=== PATIENT | male | born 1950 | race Two or more races ===

== ENCOUNTER → 2016-10-31 | Outpatient (CLI) | payer OTHER ==
[~2016-10-31] VITALS: Ht 162.6 cm; Wt 83.0 kg
[2016-10-31 16:40] LABS: Basophils # (auto) 0 uL; Basophils % (auto) 0.5 % (0.0-2.0); CONDITION Y; Eosinophils # (auto) 0.1 uL; Eosinophils % (auto) 1.3 % (0.0-7.0); Hemoglobin 15.8 g/dL (13.5-17.5); Lymphocytes # (auto) 2.1 uL; Mean Corpuscular Hemoglobin 31.7 pg (28.0-32.0); Mean Corpuscular Hgb Conc. 33.6 g/dL (32.0-36.0); Mean Corpuscular Volume 94.2 fL (80.0-100.0); Mean Platelet Volume 8.7 fL (7.4-10.4); Monocytes # (auto) 0.4 uL; Monocytes % (auto) 6.4 % (0.0-12.0); Neutrophils # (auto) 3.8 uL; Neutrophils % (auto) 59.8 % (37.0-80.0); Platelet Count (auto) 388 10^3/uL (140-450); Red Cell Distribution Width 13.9 % (11.6-16.0); White Blood Cell 6.4 10^3/uL (4.4-10.8)
[2016-10-31 16:57] LABS: Albumin 3.7 g/dL (3.4-5.0); Anion Gap 11 (5-15); Blood Urea Nitrogen 11 mg/dL (7-18); Calcium 8.3 mg/dL (8.5-10.1); Carbon Dioxide 22 mmol/L (21-32); Chloride 110 mmol/L (98-107); Glucose 89 mg/dL (74-106); Sodium 143 mmol/L (136-145)
[2016-10-31 16:58] LABS: Aspartate Aminotransferase 17 U/L (15-37); BUN/Creatinine Ratio 12.2; GFR African American 109 mL/min; GFR Non-African American 90 mL/min
[2016-10-31 16:59] LABS: Urine Bilirubin Negative (Negative); Urine Blood Negative /uL (Negative); Urine Color Yellow (Yellow); Urine Glucose Normal (Normal); Urine Ketone Negative (Negative); Urine Nitrite Negative (Negative); Urine Urobilinogen Normal (Negative); Urine pH 7.5 (5.0-8.0)
[2016-10-31 17:01] LABS: Alkaline Phosphatase 103 U/L (45-117); Bilirubin, Total 0.6 mg/dL (0.2-1.0); Total Protein 7.8 g/dL (6.4-8.2)
[2016-10-31 17:25] LABS: Bilirubin, Direct < 0.1 mg/dL (0-0.2); Cholesterol 198 mg/dL (< 200); HDL Cholesterol 37 mg/dL (40-59); LDL Cholesterol 129 mg/dL (< 100); Triglycerides 228 mg/dL (< 150)
== END | disposition home or self-care (01) ==
LOC: Rad HDHVI 09:14
PROVIDERS: ATTEND Internal Medicine Cardiovascular Disease
DX: I11.0 Hypertensive heart disease with heart failure (principal); I50.9 Heart failure, unspecified; I25.2 Old myocardial infarction; E11.9 Type 2 diabetes mellitus without complications; E78.00 Pure hypercholesterolemia, unspecified; E03.9 Hypothyroidism, unspecified; K74.1 Hepatic sclerosis; N39.0 Urinary tract infection, site not specified; D64.9 Anemia, unspecified; E55.9 Vitamin D deficiency, unspecified; R53.81 Other malaise; R97.20 Elevated prostate specific antigen [PSA]; R94.31 Abnormal electrocardiogram [ECG] [EKG]
CPT/HCPCS: 36415; 78452; 80048; 80061; 80076; 81003; 82306; 83036; 84403; 84443; 85025; 93017; 96374; A9500; 84153

== ENCOUNTER → 2016-11-01 | Outpatient (CLI) | payer OTHER | END | disposition home or self-care (01) | LOC: Rad HDHVI 15:49 | PROVIDERS: ATTEND Internal Medicine Cardiovascular Disease | DX: I73.9 Peripheral vascular disease, unspecified (principal) | CPT/HCPCS: 93926 ==

== ENCOUNTER 2017-06-07 09:20 | Inpatient (IN) | payer OTHER ==
[~2017-06-07] VITALS: Ht 162.6 cm; Wt 80.6 kg
[2017-06-07 10:14] LABS: Basophils # (auto) 0 uL; Basophils % (auto) 0.3 % (0.0-2.0); Eosinophils # (auto) 0 uL; Hematocrit 50.6 % (41.0-53.0); Hemoglobin 16.9 g/dL (13.5-17.5); Lymphocytes # (auto) 1.3 uL; Lymphocytes % (auto) 13.5 % (10.0-50.0); Mean Corpuscular Hgb Conc. 33.3 g/dL (32.0-36.0); Mean Corpuscular Volume 96.2 fL (80.0-100.0); Monocytes # (auto) 0.3 uL; Monocytes % (auto) 2.9 % (0.0-12.0); Neutrophils % (auto) 83.3 % (37.0-80.0); Nucleated Red Blood Cells % 0.1 %; Platelet Count (auto) 374 10^3/uL (140-450); Red Blood Cells 5.26 10^6/uL (4.5-5.90); Red Cell Distribution Width 14.6 % (11.8-14.3); White Blood Cell 9.6 10^3/uL (4.4-10.8)
[2017-06-07 10:21] LABS: Alanine Aminotransferase 41 U/L (16-61); Albumin 4.1 g/dL (3.4-5.0); Anion Gap 6 (5-15); Aspartate Aminotransferase 21 U/L (15-37); BUN/Creatinine Ratio 13.8; Blood Urea Nitrogen 15 mg/dL (7-18); Calcium 8.7 mg/dL (8.5-10.1); Carbon Dioxide 29 mmol/L (21-32); Chloride 102 mmol/L (98-107); GFR African American 87 mL/min; GFR Non-African American 72 mL/min; Glucose 155 mg/dL (74-106); Potassium 4.3 mmol/L (3.5-5.1); Sodium 137 mmol/L (136-145)
[2017-06-07 10:26] LABS: Alkaline Phosphatase 107 U/L (45-117); Bilirubin, Total 0.8 mg/dL (0.2-1.0); Total Protein 8.5 g/dL (6.4-8.2)
[2017-06-07] MEDS ORDERED: SODIUM CHLORIDE 0.9% 1,000 ML IVB ONE (14:09)
[2017-06-07] MEDS ORDERED: ONDANSETRON HCL 4 MG/2 ML VIAL IV ONE (14:15)
[2017-06-07] MEDS ORDERED: LABETALOL HCL 5 MG/ML ML 20ML VIAL IV PRN (15:45)
[2017-06-07] MEDS ORDERED: PROMETHAZINE HCL 25 MG/ML 1ML IV PRN (15:45)
[2017-06-07] MEDS ORDERED: IOHEXOL 350 MG/ML 100ML IJ ONE (15:45)
[2017-06-07] MEDS ORDERED: NITROGLYCERIN 0.4 MG SL TAB SL PRN (15:45)
[2017-06-07] MEDS ORDERED: MORPHINE SULFATE 4 MG/ML SYR/VIAL IV PRN ×2 (15:45)
[2017-06-07] MEDS ORDERED: LACTULOSE 20Gm/30ML SOLN PO PRN (15:45)
[2017-06-07] MEDS ORDERED: DEXTROSE (50%) 50ML SYRG IV PRN (15:45)
[2017-06-07] MEDS ORDERED: ACETAMINOPHEN 500 MG TAB PO PRN (15:45)
[2017-06-07] MEDS ORDERED: HYDROcodone-ACET 5/325MG TAB PO PRN (15:45)
[2017-06-07] MEDS: SODIUM CHLORIDE 0.9% 1,000 ML IV SCH (17:50)
[2017-06-07] MEDS: ACCU-CHEK COMFORT CURVE STRIP VI SCH (18:18)
[2017-06-07 18:46] LABS: Urine Bacteria NONE SEEN /hpf (None Seen); Urine Blood Negative /uL (Negative); Urine Mucus FEW (None Seen); Urine WBC 1 /hpf (0 - 3)
[2017-06-07 18:54] LABS: Urine Specific Gravity > 1.050 (1.001-1.035)
[2017-06-07 18:58] LABS: Folate (Folic Acid) 18.15 ng/mL (5.38-24)
[2017-06-07 18:59] LABS: Alcohol, Urine < 3.0 mg/dL (0-5); Amphetamine Screen, Urine NEGATIVE (NEGATIVE); Barbiturate Scree,Urine NEGATIVE (NEGATIVE); Benzodiazephine Screen, Urine NEGATIVE (NEGATIVE); Cannabinoid Screen, Urine NEGATIVE (NEGATIVE); Cocaine Screen, Urine NEGATIVE (NEGATIVE); Opiate Scree,Urine NEGATIVE (NEGATIVE); Phencyclidine Screen, Urine NEGATIVE (NEGATIVE)
[2017-06-07] MEDS: ATORVASTATIN 20 MG TAB PO SCH (22:00)
[2017-06-08] MEDS ORDERED: ASPI81CH4 PO (00:37)
[2017-06-08] MEDS ORDERED: ENAL2.5T PO (00:37)
[2017-06-08] MEDS: SODIUM CHLORIDE 0.9% 1,000 ML IV SCH ×2 (04:10→17:44)
[2017-06-08 05:02] VITALS: BP 137/74
[2017-06-08] MEDS: ACCU-CHEK COMFORT CURVE STRIP VI SCH ×4 (05:34→17:53)
[2017-06-08 08:00] VITALS: BP 134/75
[2017-06-08] MEDS ORDERED: ENOXAPARIN SOD 40 MG/0.4 ML SYRINGE SC SCH (10:00)
[2017-06-08] MEDS ORDERED: PANTOPRAZOLE 40 MG TAB PO SCH (10:00)
[2017-06-08] MEDS ORDERED: ASPirin 81 mg TAB PO SCH (10:00)
[2017-06-08 12:00] VITALS: BP 140/74
[2017-06-08 17:00] VITALS: BP 134/82
[2017-06-08 21:57] VITALS: BP 140/74
[2017-06-08] MEDS: ATORVASTATIN 20 MG TAB PO SCH (22:26)
[2017-06-09 00:06] VITALS: BP 140/74
[2017-06-09] MEDS: SODIUM CHLORIDE 0.9% 1,000 ML IV SCH (05:10)
[2017-06-09 05:30] VITALS: BP 139/76
[2017-06-09] MEDS: ACCU-CHEK COMFORT CURVE STRIP VI SCH ×2 (05:44)
[2017-06-09 09:00] VITALS: BP 134/84
== END 2017-06-09 10:44 | disposition home or self-care (01) | DRG 149 ==
LOC: ER 09:20 → TELE 09:21 → TELE-EAST 19:43 → EAST 06-09 05:49
PROVIDERS: ADMIT Internal Medicine; ATTEND Family Medicine
DX: R42 Dizziness and giddiness (principal); E78.5 Hyperlipidemia, unspecified; E86.1 Hypovolemia; I10 Essential (primary) hypertension; I25.10 Atherosclerotic heart disease of native coronary artery without angina pectoris; K59.00 Constipation, unspecified; K57.90 Diverticulosis of intestine, part unspecified, without perforation or abscess without bleeding; I25.2 Old myocardial infarction; Z82.49 Family history of ischemic heart disease and other diseases of the circulatory system
CPT/HCPCS: 36415; 70450; 71045; 71275; 80053; 80307; 81001; 82550; 82607; 82746; 82962; 83036; 83880; 84443; 84484; 85025; 85379; 85652; 93005; 93306; 93886; 94761; 96361; 96374; J2405

== ENCOUNTER → 2023-02-08 | Outpatient (CLI) | payer OTHER ==
[~2023-02-08] MED LIST: ASPI81CH74 PO; ENAL1TAB42 PO
== END | disposition home or self-care (01) ==
LOC: XYW 10:19
PROVIDERS: ATTEND Student in an Organized Health Care Education/Training Program
DX: I73.9 Peripheral vascular disease, unspecified (principal)
CPT/HCPCS: 93925

== ENCOUNTER → 2023-02-08 | Outpatient (CLI) | payer OTHER ==
[2023-02-08 11:48] LABS: Basophils # (auto) 0.1 10 ^3/uL (0-0.2); Basophils % (auto) 0.7 % (0.0-2.0); Eosinophils # (auto) 0.1 10 ^3/uL (0-0.8); Eosinophils % (auto) 1.4 % (0.0-7.0); Hematocrit 43.1 % (41.0-53.0); Hemoglobin 14.8 g/dL (13.5-17.5); Lymphocytes # (auto) 2.7 10 ^3/uL (0.4-5.4); Lymphocytes % (auto) 32.6 % (10.0-50.0); Mean Corpuscular Hemoglobin 31.2 pg (28.0-32.0); Mean Corpuscular Hgb Conc. 34.4 g/dL (32.0-36.0); Mean Corpuscular Volume 90.9 fL (80.0-100.0); Monocytes # (auto) 0.5 10 ^3/uL (0-1.3); Monocytes % (auto) 5.8 % (0.0-12.0); Neutrophils # (auto) 4.9 10 ^3/uL (1.6-8.6); Neutrophils % (auto) 59.5 % (37.0-80.0); Nucleated Red Blood Cells % 0.1 %; Red Blood Cells 4.74 10^6/uL (4.5-5.90); Red Cell Distribution Width 13.5 % (11.8-14.3); White Blood Cell 8.3 10^3/uL (4.4-10.8)
[2023-02-08 11:53] LABS: Urine Bacteria NONE SEEN /hpf (None Seen); Urine Blood Negative /uL (Negative); Urine Clarity Clear (Clear); Urine Color Colorless (Yellow); Urine Hyaline Cast FEW /lpf (0 - 2); Urine Mucus FEW (None Seen); Urine Protein, UAD Negative (Negative); Urine Specific Gravity 1.013 (1.001-1.035); Urine Urobilinogen Normal (Negative); Urine WBC <1 /hpf (0 - 3); Urine pH 6.5 (5.0-8.0)
[2023-02-08 12:37] LABS: Alanine Aminotransferase 44 U/L (7-40); Albumin 4.7 g/dL (3.2-4.8); Alkaline Phosphatase 90 U/L (46-116); Anion Gap 7 (5-15); Aspartate Aminotransferase 39 U/L (13-40); BUN/Creatinine Ratio 13.2 (10.0-20.0); Blood Urea Nitrogen 12 mg/dL (9-23); Calcium 9.6 mg/dL (8.5-10.1); Carbon Dioxide 30 mmol/L (20-30); Chloride 103 mmol/L (98-107); Cholesterol 131 mg/dL (< 200); Glucose 103 mg/dL (74-106); HDL Cholesterol 39 mg/dL (40-59); LDL Cholesterol 65 mg/dL (< 100); Potassium 3.2 mmol/L (3.5-5.1); Sodium 140 mmol/L (136-145); Total Protein 8.1 g/dL (5.7-8.2); Triglycerides 187 mg/dL (< 150)
== END | disposition home or self-care (01) ==
LOC: LAB 11:23
DX: I10 Essential (primary) hypertension (principal); E78.5 Hyperlipidemia, unspecified; E78.1 Pure hyperglyceridemia
CPT/HCPCS: 36415; 80053; 80061; 81001; 82306; 83036; 85025

== ENCOUNTER → 2023-06-29 | Outpatient (CLI) | payer OTHER ==
[~2023-06-29] MED LIST changes: +AMLO1TAB22 PO; +CLOP75TA28 PO; +ENAL10TA40 PO; -ENAL1TAB42 PO; +SIMV20TA20 PO
== END | disposition home or self-care (01) ==
LOC: LAB 16:10
PROVIDERS: ATTEND Student in an Organized Health Care Education/Training Program
DX: Z12.11 Encounter for screening for malignant neoplasm of colon (principal)
CPT/HCPCS: 82270

== ENCOUNTER → 2023-08-01 | Outpatient (CLI) | payer OTHER ==
[2023-08-01 08:11] LABS: Urine Bacteria None Seen /hpf (None Seen)
[2023-08-01 08:18] LABS: Basophils # (auto) 0 10 ^3/uL (0-0.2); Basophils % (auto) 0.5 % (0.0-2.0); Eosinophils # (auto) 0.2 10 ^3/uL (0-0.8); Eosinophils % (auto) 2.5 % (0.0-7.0); Hematocrit 42.4 % (41.0-53.0); Hemoglobin 14.5 g/dL (13.5-17.5); Lymphocytes # (auto) 3.4 10 ^3/uL (0.4-5.4); Lymphocytes % (auto) 41.5 % (10.0-50.0); Mean Corpuscular Hgb Conc. 34.2 g/dL (32.0-36.0); Mean Corpuscular Volume 90.8 fL (80.0-100.0); Monocytes # (auto) 0.6 10 ^3/uL (0-1.3); Monocytes % (auto) 7.2 % (0.0-12.0); Neutrophils % (auto) 48.3 % (37.0-80.0); Nucleated Red Blood Cells % 0.1 %; Red Blood Cells 4.66 10^6/uL (4.5-5.90); Red Cell Distribution Width 13.8 % (11.8-14.3); White Blood Cell 8.2 10^3/uL (4.4-10.8)
[2023-08-01 08:46] LABS: Urine Blood Negative /uL (Negative); Urine Clarity Clear (Clear); Urine Color Yellow (Yellow); Urine Hyaline Cast FEW /lpf (0 - 2); Urine Mucus FEW (None Seen); Urine Protein, UAD TRACE (Negative); Urine Specific Gravity 1.024 (1.001-1.035); Urine Urobilinogen Normal (Negative); Urine WBC 1 /hpf (0 - 3)
[2023-08-01 09:12] LABS: Alanine Aminotransferase 29 U/L (7-40); Alkaline Phosphatase 94 U/L (46-116); Anion Gap 9 (5-15); BUN/Creatinine Ratio 12.1 (10.0-20.0); Blood Urea Nitrogen 11 mg/dL (9-23); Calcium 9.6 mg/dL (8.5-10.1); Carbon Dioxide 28 mmol/L (20-30); Chloride 103 mmol/L (98-107); Glucose 117 mg/dL (74-106); Potassium 3.2 mmol/L (3.5-5.1); Sodium 140 mmol/L (136-145); Triglycerides 151 mg/dL (< 150)
[2023-08-01 09:13] LABS: LDL Cholesterol 73 mg/dL (< 100)
[2023-08-01 09:14] LABS: Albumin 4.4 g/dL (3.2-4.8); Aspartate Aminotransferase 24 U/L (13-40); Bilirubin, Total 0.8 mg/dL (0.2-1.0); Cholesterol 136 mg/dL (< 200); HDL Cholesterol 42 mg/dL (40-59); Total Protein 7.4 g/dL (5.7-8.2)
[2023-08-01 09:40] LABS: Erythrocyte Sedimentation Rate 9 mm/hr (0-20)
== END | disposition home or self-care (01) ==
LOC: LAB 07:56
DX: I10 Essential (primary) hypertension (principal); E78.5 Hyperlipidemia, unspecified; E55.9 Vitamin D deficiency, unspecified; R53.1 Weakness; Z79.899 Other long term (current) drug therapy
CPT/HCPCS: 36415; 80053; 80061; 81001; 83036; 84443; 85025; 85652

== ENCOUNTER 2023-12-24 09:06 | Emergency (ER) | payer OTHER ==
[~2023-12-24] VITALS: Ht 167.6 cm; Wt 81.2 kg
[2023-12-24] MEDS ORDERED: AMIODARONE 450mg/250ml AE 250 ML IV SCH (09:45)
[2023-12-24] MEDS ORDERED: AMIODARONE BOLUS KIT 100 ML IV ONE (09:45)
[2023-12-24 09:50] VITALS: TEMP 98
[2023-12-24] MEDS: dilTIAZem 25 MG/5 ML VIAL IV ONE (10:00)
[2023-12-24 10:15] LABS: Alanine Aminotransferase 29 U/L (7-40); Albumin 4.5 g/dL (3.2-4.8); Alkaline Phosphatase 98 U/L (46-116); Anion Gap 15 (5-15); Aspartate Aminotransferase 21 U/L (13-40); BUN/Creatinine Ratio 27.9 (10.0-20.0); Blood Urea Nitrogen 29 mg/dL (9-23); Carbon Dioxide 22 mmol/L (20-30); Chloride 105 mmol/L (98-107); Glucose 227 mg/dL (74-106); Potassium 3.2 mmol/L (3.5-5.1); Sodium 142 mmol/L (136-145)
[2023-12-24 10:16] LABS: Total Protein 7.2 g/dL (5.7-8.2)
[2023-12-24 10:17] LABS: Basophils # (auto) 0 10 ^3/uL (0-0.2); Basophils % (auto) 0.4 % (0.0-2.0); Eosinophils # (auto) 0.2 10 ^3/uL (0-0.8); Eosinophils % (auto) 1.8 % (0.0-7.0); Hematocrit 42.7 % (41.0-53.0); Hemoglobin 15.1 g/dL (13.5-17.5); Lymphocytes # (auto) 2.6 10 ^3/uL (0.4-5.4); Lymphocytes % (auto) 32.4 % (10.0-50.0); Mean Corpuscular Hemoglobin 31.8 pg (28.0-32.0); Mean Corpuscular Hgb Conc. 35.3 g/dL (32.0-36.0); Monocytes # (auto) 0.5 10 ^3/uL (0-1.3); Monocytes % (auto) 6.5 % (0.0-12.0); Neutrophils # (auto) 4.8 10 ^3/uL (1.6-8.6); Neutrophils % (auto) 58.9 % (37.0-80.0); Nucleated Red Blood Cells % 0.1 %; Platelet Count (auto) 351 10^3/uL (140-450); Red Blood Cells 4.75 10^6/uL (4.5-5.90); Red Cell Distribution Width 14.1 % (11.8-14.3); White Blood Cell 8.1 10^3/uL (4.4-10.8)
[2023-12-24] MEDS ORDERED: METO25TA5 PO (12:19)
[2023-12-24 12:25] VITALS: BP 133/78; PULSE 92; RESP 18; O2SAT 94
[2023-12-24] MEDS: POTASSIUM EFFERVESENT TAB 25 MEQ PO ONE (12:32)
== END 2023-12-24 12:31 | disposition home or self-care (01) ==
LOC: ER 09:06
DX: I48.91 Unspecified atrial fibrillation (principal); I10 Essential (primary) hypertension; I25.2 Old myocardial infarction; I25.10 Atherosclerotic heart disease of native coronary artery without angina pectoris; E78.5 Hyperlipidemia, unspecified; Z79.899 Other long term (current) drug therapy
CPT/HCPCS: 36415; 80053; 84484; 85025; 93005; 96374

== ENCOUNTER → 2024-02-27 | Outpatient (CLI) | payer OTHER ==
[~2024-02-27] MED LIST changes: +METO25TA5 PO
[2024-02-27 12:56] LABS: Urine Bacteria None Seen /hpf (None Seen)
[2024-02-27 13:04] LABS: Basophils # (auto) 0 10 ^3/uL (0-0.2); Basophils % (auto) 0.2 % (0.0-2.0); Eosinophils # (auto) 0.1 10 ^3/uL (0-0.8); Eosinophils % (auto) 1.9 % (0.0-7.0); Hematocrit 47.2 % (41.0-53.0); Hemoglobin 16.2 g/dL (13.5-17.5); Lymphocytes % (auto) 39.3 % (10.0-50.0); Mean Corpuscular Hemoglobin 31.5 pg (28.0-32.0); Mean Corpuscular Hgb Conc. 34.3 g/dL (32.0-36.0); Mean Corpuscular Volume 91.9 fL (80.0-100.0); Monocytes # (auto) 0.5 10 ^3/uL (0-1.3); Monocytes % (auto) 6.9 % (0.0-12.0); Neutrophils # (auto) 3.9 10 ^3/uL (1.6-8.6); Neutrophils % (auto) 51.7 % (37.0-80.0); Nucleated Red Blood Cells % 0.1 %; Platelet Count (auto) 337 10^3/uL (140-450); Red Blood Cells 5.14 10^6/uL (4.5-5.90); Red Cell Distribution Width 13.8 % (11.8-14.3); White Blood Cell 7.5 10^3/uL (4.4-10.8)
[2024-02-27 13:37] LABS: Urine Blood Negative /uL (Negative); Urine Clarity Clear (Clear); Urine Color Yellow (Yellow); Urine Hyaline Cast FEW /lpf (0 - 2); Urine Mucus FEW (None Seen); Urine Protein, UAD 1+ (Negative); Urine Urobilinogen 2 mg/dL (Negative); Urine WBC 1 /hpf (0 - 3)
[2024-02-27 13:58] LABS: Alanine Aminotransferase 28 U/L (7-40); Albumin 4.9 g/dL (3.2-4.8); Alkaline Phosphatase 96 U/L (46-116); Calcium 10.5 mg/dL (8.7-10.4); Chloride 104 mmol/L (98-107); Triglycerides 191 mg/dL (< 150)
[2024-02-27 13:59] LABS: Anion Gap 9 (5-15); Aspartate Aminotransferase 22 U/L (13-40); BUN/Creatinine Ratio 11.1 (10.0-20.0); Bilirubin, Total 0.9 mg/dL (0.2-1.0); Blood Urea Nitrogen 11 mg/dL (9-23); Carbon Dioxide 29 mmol/L (20-31); Cholesterol 115 mg/dL (< 200); Glucose 111 mg/dL (74-106); HDL Cholesterol 40 mg/dL (40-59); LDL Cholesterol 49 mg/dL (< 100); Potassium 4.2 mmol/L (3.5-5.1); Sodium 142 mmol/L (136-145); Total Protein 8.2 g/dL (5.7-8.2)
== END | disposition home or self-care (01) ==
LOC: LAB 12:41
DX: E11.9 Type 2 diabetes mellitus without complications (principal); E78.5 Hyperlipidemia, unspecified; E55.9 Vitamin D deficiency, unspecified
CPT/HCPCS: 36415; 80053; 80061; 81001; 82306; 83036; 84443; 85025

== ENCOUNTER → 2024-07-15 | Outpatient (CLI) | payer OTHER ==
[2024-07-15 10:36] LABS: Urine Bacteria None Seen /hpf (None Seen)
[2024-07-15 10:47] LABS: Basophils # (auto) 0.1 10 ^3/uL (0-0.2); Basophils % (auto) 0.7 % (0.0-2.0); Eosinophils # (auto) 0.2 10 ^3/uL (0-0.8); Eosinophils % (auto) 1.7 % (0.0-7.0); Hematocrit 42.4 % (41.0-53.0); Hemoglobin 14.4 g/dL (13.5-17.5); Lymphocytes # (auto) 2.5 10 ^3/uL (0.4-5.4); Lymphocytes % (auto) 27.1 % (10.0-50.0); Mean Corpuscular Hemoglobin 31.4 pg (28.0-32.0); Mean Corpuscular Volume 92.3 fL (80.0-100.0); Monocytes # (auto) 0.8 10 ^3/uL (0-1.3); Monocytes % (auto) 8.8 % (0.0-12.0); Neutrophils # (auto) 5.6 10 ^3/uL (1.6-8.6); Neutrophils % (auto) 61.7 % (37.0-80.0); Platelet Count (auto) 273 10^3/uL (140-450); Red Blood Cells 4.59 10^6/uL (4.5-5.90); Red Cell Distribution Width 14.3 % (11.8-14.3); White Blood Cell 9.1 10^3/uL (4.4-10.8)
[2024-07-15 10:58] LABS: Urine Blood Negative /uL (Negative); Urine Clarity Clear (Clear); Urine Color Yellow (Yellow); Urine Protein, UAD Negative (Negative); Urine Specific Gravity 1.019 (1.001-1.035); Urine Squamous Epithelial Cell FEW /hpf (<5); Urine Urobilinogen Normal (Negative); Urine WBC 1 /HPF (0-3)
[2024-07-15 11:28] LABS: Alanine Aminotransferase 18 U/L (7-40); Alkaline Phosphatase 101 U/L (46-116); Anion Gap 9 (5-15); BUN/Creatinine Ratio 14.8 (10.0-20.0); Blood Urea Nitrogen 12 mg/dL (9-23); Calcium 9.6 mg/dL (8.7-10.4); Carbon Dioxide 27 mmol/L (20-31); Chloride 105 mmol/L (98-107); LDL Cholesterol 47 mg/dL (< 100); Potassium 3.5 mmol/L (3.5-5.1); Sodium 141 mmol/L (136-145); Total Protein 7.4 g/dL (5.7-8.2)
[2024-07-15 11:29] LABS: Albumin 4.6 g/dL (3.2-4.8); Aspartate Aminotransferase < 8 U/L (13-40); Bilirubin, Total 1.1 mg/dL (0.2-1.0); Cholesterol 112 mg/dL (< 200); Glucose 129 mg/dL (74-106); Triglycerides 180 mg/dL (< 150)
[2024-07-15 11:30] LABS: Creatinine, Urine 187.63 mg/dL (30.0-125.0)
[2024-07-15 11:32] LABS: HDL Cholesterol 37 mg/dL (40-59)
== END | disposition home or self-care (01) ==
LOC: LAB 10:13
PROVIDERS: ATTEND Nurse Practitioner Family
DX: I10 Essential (primary) hypertension (principal); E11.9 Type 2 diabetes mellitus without complications; E55.9 Vitamin D deficiency, unspecified; E78.5 Hyperlipidemia, unspecified
CPT/HCPCS: 36415; 80053; 80061; 81001; 82043; 82306; 82570; 82607; 83036; 85025

== ENCOUNTER 2024-09-27 08:51 | Inpatient (IN) | payer OTHER ==
[2024-09-24 11:51] LABS: Basophils # (auto) 0 10 ^3/uL (0-0.2); Basophils % (auto) 0.4 % (0.0-2.0); Eosinophils # (auto) 0.1 10 ^3/uL (0-0.8); Hematocrit 42.6 % (41.0-53.0); Hemoglobin 14.7 g/dL (13.5-17.5); Lymphocytes # (auto) 2.8 10 ^3/uL (0.4-5.4); Lymphocytes % (auto) 37.8 % (10.0-50.0); Mean Corpuscular Hemoglobin 31.2 pg (28.0-32.0); Mean Corpuscular Hgb Conc. 34.5 g/dL (32.0-36.0); Mean Corpuscular Volume 90.5 fL (80.0-100.0); Monocytes # (auto) 0.6 10 ^3/uL (0-1.3); Monocytes % (auto) 7.7 % (0.0-12.0); Neutrophils # (auto) 3.8 10 ^3/uL (1.6-8.6); Neutrophils % (auto) 52.1 % (37.0-80.0); Nucleated Red Blood Cells % 0.1 %; Platelet Count (auto) 252 10^3/uL (140-450); Red Blood Cells 4.71 10^6/uL (4.5-5.90); Red Cell Distribution Width 13.5 % (11.8-14.3); White Blood Cell 7.3 10^3/uL (4.4-10.8)
[2024-09-24 12:04] LABS: Alanine Aminotransferase 24 U/L (7-40); Albumin 4.5 g/dL (3.2-4.8); Alkaline Phosphatase 89 U/L (46-116); Anion Gap 8 (5-15); Aspartate Aminotransferase 27 U/L (<34); BUN/Creatinine Ratio 15.3 (10.0-20.0); Blood Urea Nitrogen 13 mg/dL (9-23); Calcium 9.7 mg/dL (8.7-10.4); Carbon Dioxide 25 mmol/L (20-31); Potassium 3.6 mmol/L (3.5-5.1); Sodium 141 mmol/L (136-145); Total Protein 7.5 g/dL (5.7-8.2)
[2024-09-24 12:06] LABS: Chloride 108 mmol/L (98-107); Glucose 111 mg/dL (74-106)
[2024-09-24 12:09] LABS: INR 1.04 (0.9-1.15); Partial Thromboplastin Time 26.5 SEC (24.5-34.5)
[~2024-09-27] VITALS: Ht 167.6 cm; Wt 87.5 kg
[~2024-09-27 08:51] MED LIST changes: -ASPI81CH74 PO; +METF-370 PO; +PRED20TA2 PO; +ROSU20TA56 PO; -SIMV20TA20 PO
[2024-09-27] MEDS ORDERED: SODIUM CHLORIDE LOCK 10 ML ONE (10:01)
[2024-09-27 10:07] VITALS: PULSE 100; RESP 16; O2SAT 95
[2024-09-27] MEDS: fentaNYL CITRATE 100 MCG/2 ML VL ONE (10:12)
[2024-09-27] MEDS: diphenhdrAMINE HCL 50 MG/1 ML VL ONE (10:12)
[2024-09-27] MEDS: MIDAZOLAM HCL 5 MG/ML-1ML VIAL ONE (10:12)
[2024-09-27 10:33] VITALS: PULSE 135; RESP 17; O2SAT 98
--- NOTE | 2024-09-27 10:59 | DVHOP2 ---
Operative Report DATE OF OPERATION: 09/27/24 PROCEDURE: Colonoscopy with hot snare polypectomy. PREOPERATIVE INDICATION: The patient is a 73 -year-old male undergoing colonoscopy for colon cancer screening with stool for fit positive POSTOPERATIVE DIAGNOSES: 1. Patien had a 1.5 cm cecal polyp that was seen and removed by hot snare polypectomy and the specimens were retrieved 2. 5 mm benign-appearing ascending colon polyp that was seen and removed by hot snare polypectomy and the specimen was retrieved 3. 1.5 cm benign-appearing sigmoid polyp that was seen and removed by hot snare polypectomy and an adjacent 2 mm polyp was removed by cold biopsy forceps 4. Moderate scattered diverticular disease most prominent in the sigmoid 5. 1+ internal hemorrhoids otherwise completely normal colonoscopy examination up to the cecum and terminal ileum PROCEDURE PERFORMED BY: Tyrone Ch M.D. SCOPE: Olympus videocolonoscope. ASA CLASS: 2. PREOPERATIVE MEDICATIONS: Versed 1 mg, Fentanyl 25 mcg, Benadryl 50 mg PROCEDURE IN DETAIL: After obtaining an informed consent, the patient was placed on left lateral decubitus position. He was then sedated with the above medications. A rectal examination was performed that was normal. The colonoscope was then passed through the anus into the rectosigmoid and through the descending, transverse, and ascending colon up to the cecum with visualization of the appendiceal orifice, base of the cecum and the ileocecal valve. The colonoscope was then withdrawn. The distal 5-10 cm of the terminal ileum were normal The patient had a 1.5 cm cecal polyp that was seen and removed via hot snare polypectomy and the specimen was retrieved The patient had another 5 mm benign-appearing ascending colon polyp that was seen and removed by hot snare polypectomy and the specimen was retrieved Patient had scattered diverticular disease more prominent in the left colon and the sigmoid colon area. There was a 2 mm sigmoid polyp that was removed by cold biopsy forceps There was a 1.5 cm rectosigmoid polyp that was seen and removed by hot snare polypectomy and the specimen was retrieved On retroflexion patient had trace to 1+ internal hemorrhoids. The patient tolerated the procedure well without difficulty. WITHDRAWAL TIME: 9 minutes QUALITY OF THE PREP: [place] Bowel Prep score: 9. COMPLICATIONS : None SPECIMENS: Cecal polyp Ascending colon polyp Sigmoid polyps x2 DISPOSITION: Stable D/C to home PLAN: 1. Repeat colonoscopy base on biopsy result likely in 2-3 years 2. Resume GI soft diet advance as tolerated 3. Hold Plavix for three days 4. Outpatient follow up with me in 4-6 weeks to review results and discuss furth er management 5. Increase fluid and fiber intake TYRONE CH MD Sep 27, 2024 10:59
[2024-09-27] MEDS ORDERED: NITROGLYCERIN 0.4 MG SL TAB SL PRN (12:30)
[2024-09-27] MEDS ORDERED: ACETAMINOPHEN 325 MG TAB PO PRN (12:30)
[2024-09-27] MEDS ORDERED: ONDANSETRON HCL 4 MG/2 ML VIAL IV PRN (12:30)
[2024-09-27] MEDS ORDERED: MORPHINE SULFATE INJ 2 MG/ml SYRG IV PRN (12:30)
--- NOTE | 2024-09-27 12:37 | DVHHP2 ---
History of Present Illness Reason for Visit: AFib RVR History of Present Illness Johnny Kinney is a 73-year-old male with past medical history of hypertension, hemorrhoids, [place], moderate diverticulosis, colon polyps, colonoscopy, colon cancer, and cyst on the head was removed in 2023 at [facility] who presents to the OR for colonoscopy. Patient was seen in the recovery room after colonoscopy and on the monitor shows AFib. RN at the bedside states that the patient's rate went up to the 130s. Patient is admitted for AFib RVR up to the 130s. Patient reports that he did not take his metoprolol today due to the colonoscopy. He also reports that he sees Dr. Paetl as his traditional maori health practitioner every 3-6 months for follow up and has no history of AFib. Patient denies any current chest pain, fever, chills, recent trauma or injury, recent sick contacts, recent ingestion of spoiled food, recent travels, nausea, vomiting, diarrhea, lightheadedness, weakness, or dizziness. Patient also states that he lives at home with his . He states that he walks without any DMEs. Cardiovascular: HTN, [place] Past Medical History Hemorrhoids Diverticulosis Colon polyps Colon cancer Past Surgical History: Other (Colonoscopy And cyst on the head that was removed in 2023) Family History: Other (Both ) Smoke: No ALCOHOL: none Drugs: None Lives: with Family Domestic Violence: Neg Review of Systems Constitutional: Yes: Other (AFib RVR) Allergies: Coded Allergies: NO KNOWN ALLERGIES (Unverified , 07/27/15) Medications Current Medications Medications Dose Ordered Sig/Alejandro Route Start Time Stop Time Status Last Admin Dose Admin Ondansetron HCl 4 mg Q4HP PRN IV 09/27/24 12:30 UNV Acetaminophen 650 mg Q6HP PRN PO 09/27/24 12:30 UNV Nitroglycerin 0.4 mg Q5MINP PRN SL 09/27/24 12:30 UNV Morphine Sulfate 2 mg Q30M PRN IV 09/27/24 12:30 UNV Exam Vital Signs Vital Signs Date Time Temp Pulse Resp B/P (MAP) Pulse Ox O2 Delivery O2 Flow Rate FiO2 09/27/24 10:33 Room Air 0 98 09/27/24 10:33 135 17 98 09/27/24 10:33 97.3 111/77 (88) 97.3 General Appearance: Alert, Oriented X3, Cooperative, No acute distress HEENT: Atraumatic, PERRLA, EOMI, Mucous membr. moist/pink Respiratory: Clear to auscultation, Normal air movement Cardiovascular: Normal S1, Normal S2 Abdominal: Soft Extremities: No edema, Normal pulses Skin: No significant lesion Neuro: Normal speech, Normal tone, Sensation intact Psych/Mental Status: Mental status NL, Mood NL Labs/Xrays Labs Test 09/27/24 09:55 09/24/24 11:39 Range/Units POC Glucose 102 70-106 mg/dl White Blood Count 7.3 4.4-10.8 10^3/uL Red Blood Count 4.71 4.5-5.90 10^6/uL Hemoglobin 14.7 13.5-17.5 g/dL Hematocrit 42.6 41.0-53.0 % Mean Corpuscular Volume 90.5 80.0-100.0 fL Mean Corpuscular Hemoglobin 31.2 28.0-32.0 pg Mean Corpuscular Hemoglobin Concent 34.5 32.0-36.0 g/dL Red Cell Distribution Width 13.5 11.8-14.3 % Platelet Count 252 140-450 10^3/uL Mean Platelet Volume 8.1 6.9-10.8 fL Neutrophils (%) (Auto) 52.1 37.0-80.0 % Lymphocytes (%) (Auto) 37.8 10.0-50.0 % Monocytes (%) (Auto) 7.7 0.0-12.0 % Eosinophils (%) (Auto) 2.0 0.0-7.0 % Basophils (%) (Auto) 0.4 0.0-2.0 % Neutrophils # (Auto) 3.8 1.6-8.6 10 ^3/uL Lymphocytes # (Auto) 2.8 0.4-5.4 10 ^3/uL Monocytes # (Auto) 0.6 0-1.3 10 ^3/uL Eosinophils # (Auto) 0.1 0-0.8 10 ^3/uL Basophils # (Auto) 0 0-0.2 10 ^3/uL Nucleated Red Blood Cells 0.1 % Prothrombin Time 11.0 9.3-11.8 sec Prothrombin Time INR 1.04 0.9-1.15 Activated Partial Thromboplast Time 26.5 24.5-34.5 SEC Sodium Level 141 136-145 mmol/L Potassium Level 3.6 3.5-5.1 mmol/L Chloride Level 108 H 98-107 mmol/L Carbon Dioxide Level 25 20-31 mmol/L Anion Gap 8 5-15 Blood Urea Nitrogen 13 9-23 mg/dL Creatinine 0.85 0.700-1.30 mg/dL Glomerular Filtration Rate Calc 91 >90 mL/min BUN/Creatinine Ratio 15.3 10.0-20.0 Serum Glucose 111 H 74-106 mg/dL Calcium Level 9.7 8.7-10.4 mg/dL Total Bilirubin 1.0 0.2-1.0 mg/dL Aspartate Amino Transferase (AST) 27 <34 U/L Alanine Aminotransferase (ALT) 24 7-40 U/L Alkaline Phosphatase 89 46-116 U/L Total Protein 7.5 5.7-8.2 g/dL Albumin 4.5 3.2-4.8 g/dL Assessment/Plan Assessment/Plan Assessment AFib with RVR Colonoscopy done today with polyps removed History of hypertension History of hemorrhoids History of [place] History of moderate diverticulosis history of colon polyps with colon cancer History of cyst on the head that was removed in 2023 at [facility] Plan Admit to tele EKG UA Beta-blockers Echo ordered UA UDS CBC/CMP Hemoglobin A1c TSH Lipid panel Chest x-ray ordered Diet Home medications reconciled DVT prophylaxis-Lovenox PUD prophylaxis-not indicated no history of GERD or GI bleed Discussed plan of care with patient and nurse Plavix to resume on Monday per surgery Cardiology consult for new onset of AFib Chads Vasc score 3 points Plan discussed with: Patient My Orders Orders - SHABANA AZUL PRESSURE DISPATCHER Procedure Category Date Status Time Complete Blood Count LAB 09/27/24 Logged 11:42 Comprehensive LAB 09/27/24 Logged Metabolic Panel 11:44 * Cardiology Consult CONS 09/27/24 Transmitted 11:44 Admit ADMIT 09/27/24 Transmitted 12:30 Allergies CHINO 09/27/24 In Process 12:30 Code Status CODE 09/27/24 Transmitted 12:30 Ondansetron Hcl PHA 09/27/24 Logged (Zofran) 12:30 Complete Blood Count LAB 09/28/24 Verified 04:00 Comprehensive LAB 09/28/24 Verified Metabolic Panel 04:00 Cardiac DIET 09/27/24 Transmitted Diet-2gna,Lofat,Lochol Lunch Echo 2d Mode Cardiac US 09/27/24 Logged DOP 12:30 Acetaminophen Tablet PHA 09/27/24 Logged (Tylenol Tablet) 12:30 Nitroglycerin PHA 09/27/24 Logged Sublingual (Ntrostat 12:30 Morphine Sulfate PHA 09/27/24 Logged Injection 12:30 Stat Ekg For Chest CHINO 09/27/24 In Process Pain 12:30 Notify Md Of Changes CHINO 09/27/24 In Process From Base 12:30 Line Decorator For CHINO 09/27/24 In Process 24 Hours 12:30 Emergency Dysrhythmia CHINO 09/27/24 In Process Protocol 12:30 Rhythm Strips Once CHINO 09/27/24 In Process Every Shift 12:30 Oxygen By Nasal RT 09/27/24 Transmitted Cannula 12:30 Urinalysis LAB 09/27/24 Logged 12:30 Electrocardigram EKG 09/27/24 Logged 12:30 Drug Screen LAB 09/27/24 Transmitted 12:32 * Cardiology Consult CONS 09/27/24 Transmitted 12:32 Hemoglobin A1c LAB 09/27/24 Transmitted 12:32 Thyroid Stimulating LAB 09/27/24 Transmitted Hormone 12:32 Lipid Panel LAB 09/27/24 Transmitted 12:32 Amlodipine Tablet PHA 09/28/24 Verified (Norvasc Tablet) 07:00 Metoprolol Tartrate PHA 09/27/24 Verified Tablet (Lopressor Ta 22:00 Date of Service: Sep 27, 2024 Billing Provider: SHABANA AZUL Common Visit Codes: [id number] INP/OBS CARE (HIGH) SHABANA AZUL Sep 27, 2024 12:37
[2024-09-27 13:03] LABS: Urine Bacteria None Seen /hpf (None Seen)
[2024-09-27 13:24] LABS: Urine Blood Negative /uL (Negative); Urine Clarity Clear (Clear); Urine Color Colorless (Yellow); Urine Protein, UAD Negative (Negative); Urine Specific Gravity 1.012 (1.001-1.035); Urine Squamous Epithelial Cell None Seen /hpf (<5); Urine Urobilinogen Normal (Negative); Urine pH 6.5 (5.0-9.0)
[2024-09-27 13:25] LABS: Basophils # (auto) 0 10 ^3/uL (0-0.2); Basophils % (auto) 0.4 % (0.0-2.0); Eosinophils # (auto) 0 10 ^3/uL (0-0.8); Eosinophils % (auto) 0.6 % (0.0-7.0); Hematocrit 45.7 % (41.0-53.0); Hemoglobin 15.5 g/dL (13.5-17.5); Lymphocytes # (auto) 2.6 10 ^3/uL (0.4-5.4); Lymphocytes % (auto) 31.6 % (10.0-50.0); Mean Corpuscular Hemoglobin 31.1 pg (28.0-32.0); Mean Corpuscular Hgb Conc. 33.8 g/dL (32.0-36.0); Mean Corpuscular Volume 92.1 fL (80.0-100.0); Monocytes # (auto) 0.6 10 ^3/uL (0-1.3); Monocytes % (auto) 7.7 % (0.0-12.0); Neutrophils # (auto) 4.8 10 ^3/uL (1.6-8.6); Neutrophils % (auto) 59.7 % (37.0-80.0); Nucleated Red Blood Cells % 0.1 %; Platelet Count (auto) 232 10^3/uL (140-450); Red Blood Cells 4.97 10^6/uL (4.5-5.90); Red Cell Distribution Width 13.8 % (11.8-14.3); White Blood Cell 8.1 10^3/uL (4.4-10.8)
[2024-09-27 13:25] LABS: Urine WBC 1 /HPF (0-3)
[2024-09-27 13:27] LABS: Benzodiazephine Screen, Urine Pos (NEGATIVE)
[2024-09-27 13:28] LABS: Amphetamine Screen, Urine Neg (NEGATIVE); Barbiturate Scree,Urine Neg (NEGATIVE); Cannabinoid Screen, Urine Neg (NEGATIVE); Cocaine Screen, Urine Neg (NEGATIVE); Opiate Scree,Urine Neg (NEGATIVE); Phencyclidine Screen, Urine Neg (NEGATIVE)
[2024-09-27 13:45] LABS: Alanine Aminotransferase 24 U/L (7-40); Albumin 4.2 g/dL (3.2-4.8); Alkaline Phosphatase 83 U/L (46-116); Anion Gap 14 (5-15); Aspartate Aminotransferase 26 U/L (<34); BUN/Creatinine Ratio 11.9 (10.0-20.0); Bilirubin, Total 1.1 mg/dL (0.2-1.0); Blood Urea Nitrogen 10 mg/dL (9-23); Calcium 9.4 mg/dL (8.7-10.4); Cholesterol 100 mg/dL (< 200); Glucose 90 mg/dL (74-106); LDL Cholesterol 44 mg/dL (< 100); Potassium 3.5 mmol/L (3.5-5.1); Sodium 143 mmol/L (136-145); Total Protein 7.2 g/dL (5.7-8.2)
[2024-09-27] MEDS ORDERED: MORPHINE SULFATE 4 MG/ML SYR/VIAL IV PRN (13:45)
[2024-09-27 13:47] LABS: Carbon Dioxide 18 mmol/L (20-31); Chloride 111 mmol/L (98-107); HDL Cholesterol 34 mg/dL (40-59); Triglycerides 153 mg/dL (< 150)
--- NOTE | 2024-09-27 15:41 | ECG ---
[facility] Test Date: 2024-09-27 Test Time: 10:41:14 Pat Name: DANICA COLE Department: Room: [facility]6T A Gender: M [employer] Driver: IRIS : [id number] Requested By: YTRONE VINSON Order Number: [id number] Reading MD: Erick Patel Measurements Intervals [place] Rate: 111 P: 0 IA: 0 QRS: -18 QRSD: 88 T: 5 QT: 378 QTc: 514 Interpretive Statements Atrial fibrillation with rapid ventricular response with premature ventricular or aberrantly conducted complexes Nonspecific T wave abnormality , probably digitalis effect Electronically Signed On 09-27-2024 21:12:38 PDT by Erick Patel Please click the below link to view image of tracing.
[2024-09-27] MEDS: ENOXAPARIN SOD 40 MG/0.4 ML SYRINGE SC SCH (16:40)
[2024-09-27 17:00] VITALS: BP 127/76; PULSE 52; RESP 16; TEMP 97.9; O2SAT 93
[2024-09-27 20:00] VITALS: PULSE 46; PULSE 50; RESP 18; O2SAT 95
--- NOTE | 2024-09-27 20:11 | DVHSR ---
APPROVED REPORT EXAM: Two-dimensional and M-mode echocardiogram with Doppler and color Doppler. Blood Pressure: 135/72 mmHg INDICATION Chest Pain afib with rvr new RISK FACTORS Obesity: Height: 5'6, Weight: 181 DIMENSIONS LVDd5.1 (3.8-5.7cm)LA (2D)3.5 (1.9-4.0cm)Aortic Root3.4 (2.0-3.7cm) LVDs3.3 (2.5-4.0cm)LA (MM) (1.9-4.0cm)Aortic Cusp Exc1.8 (1.5-2.0cm) EF (%) 60.0 (55-70%)Rt. Atrium3.3 (1.9-4.0cm)Asc. Aorta cm IVSd1.5 (0.7-1.1cm)RV (D)3.4 (1.8-2.4cm) PWd0.8 (0.7-1.1cm) Mitral Valve MitralMitral Stenosis E wave0.57m/sMV Mean GR.mmHg A wave0.65m/sMV Peak GR.52mmHg E/A ratio0.92D MVAcm2 DECEL [id number] 1/2 Tim[place] Aortic Valve Aortic ValveAortic Stenosis V11.00m/Cherise Mean GR.3mmHg V21.12m/Cherise Peak GR.5mmHg LVOT Diameter1.9 (1.8-2.4cm)Doppler AVA2.53cm2 Pulmonic Valve V20.77m/s Tricuspid Valve TR Velocity2.21m/s [id number] Other Information Quality : Technically LimitedRhythm : Technically limited study due to body habitus.patient position. Conclusion LVEF 55-60%, mild LVH
[2024-09-27 21:00] VITALS: BP 153/78; PULSE 46; RESP 18; TEMP 97.3; O2SAT 95
[2024-09-27] MEDS: METOPROLOL TARTRATE 25 MG TAB PO SCH (22:00)
[2024-09-28 01:00] VITALS: BP_SYST 117; BP_SYST 142; BP_DIAS 63; BP_DIAS 81; PULSE 58; PULSE 64; RESP 17; RESP 18; TEMP 97.5; TEMP 98.2; O2SAT 94; O2SAT 99
[2024-09-28 05:00] VITALS: BP 120/68; PULSE 60; RESP 16; TEMP 98.3; O2SAT 95
[2024-09-28 06:10] LABS: Basophils # (auto) 0 10 ^3/uL (0-0.2); Basophils % (auto) 0.3 % (0.0-2.0); Eosinophils # (auto) 0.1 10 ^3/uL (0-0.8); Eosinophils % (auto) 1.1 % (0.0-7.0); Hematocrit 43.4 % (41.0-53.0); Lymphocytes # (auto) 2.9 10 ^3/uL (0.4-5.4); Lymphocytes % (auto) 28.1 % (10.0-50.0); Mean Corpuscular Hemoglobin 31.1 pg (28.0-32.0); Mean Corpuscular Hgb Conc. 34.5 g/dL (32.0-36.0); Mean Corpuscular Volume 90.2 fL (80.0-100.0); Monocytes # (auto) 0.8 10 ^3/uL (0-1.3); Monocytes % (auto) 7.9 % (0.0-12.0); Neutrophils # (auto) 6.4 10 ^3/uL (1.6-8.6); Neutrophils % (auto) 62.6 % (37.0-80.0); Nucleated Red Blood Cells % 0.1 %; Platelet Count (auto) 269 10^3/uL (140-450); Red Blood Cells 4.82 10^6/uL (4.5-5.90); Red Cell Distribution Width 13.5 % (11.8-14.3); White Blood Cell 10.2 10^3/uL (4.4-10.8)
[2024-09-28 06:19] LABS: Alkaline Phosphatase 81 U/L (46-116)
[2024-09-28 06:20] LABS: Alanine Aminotransferase 25 U/L (7-40); Albumin 4.3 g/dL (3.2-4.8); Anion Gap 11 (5-15); Aspartate Aminotransferase 24 U/L (<34); BUN/Creatinine Ratio 16.8 (10.0-20.0); Blood Urea Nitrogen 16 mg/dL (9-23); Calcium 9.7 mg/dL (8.7-10.4); Carbon Dioxide 26 mmol/L (20-31); Chloride 107 mmol/L (98-107); Sodium 144 mmol/L (136-145); Total Protein 7.1 g/dL (5.7-8.2)
[2024-09-28 06:23] LABS: Bilirubin, Total 1.3 mg/dL (0.2-1.0); Glucose 109 mg/dL (74-106); Potassium 3.4 mmol/L (3.5-5.1)
[2024-09-28] MEDS: amLODIPine BESYLATE 5 MG TAB PO SCH (06:49)
--- NOTE | 2024-09-28 07:56 | DVH ---
EXAM: XR Chest, 1 View CLINICAL INDICATION: NEW ONSET AFIB TECHNIQUE: Frontal view of the chest. COMPARISON: None FINDINGS: LUNGS AND PLEURAL SPACES: Unremarkable. No consolidation. No pneumothorax. HEART: Unremarkable. No cardiomegaly. MEDIASTINUM: Unremarkable. Normal mediastinal contour. BONES/JOINTS: Unremarkable. No acute fracture. OTHER FINDINGS: . IMPRESSION: No acute cardiopulmonary process.
[2024-09-28 08:00] VITALS: PULSE 46
[2024-09-28 08:40] VITALS: BP 111/62; PULSE 49; RESP 16; TEMP 97.7; O2SAT 92
[2024-09-28 12:40] VITALS: BP 132/74; PULSE 53; RESP 16; TEMP 98; O2SAT 92
--- NOTE | 2024-09-28 14:27 | DVHDS2 ---
Discharge Summary Date of Admission Sep 27, 2024 at 12:30 Date of Discharge: Sep 28, 2024 Admitting Diagnosis Atrial fibrillation with rapid ventricular rate Labs/Diagnostic Data: Laboratory Results Test 09/28/24 04:50 09/27/24 13:00 09/27/24 12:40 09/27/24 09:55 White Blood Count 10.2 10^3/uL (4.4-10.8) Red Blood Count 4.82 10^6/uL (4.5-5.90) Hemoglobin 15.0 g/dL (13.5-17.5) Hematocrit 43.4 % (41.0-53.0) Mean Corpuscular Volume 90.2 fL (80.0-100.0) Mean Corpuscular Hemoglobin 31.1 pg (28.0-32.0) Mean Corpuscular Hemoglobin Concent 34.5 g/dL (32.0-36.0) Red Cell Distribution Width 13.5 % (11.8-14.3) Platelet Count 269 10^3/uL (140-450) Mean Platelet Volume 8.5 fL (6.9-10.8) Neutrophils (%) (Auto) 62.6 % (37.0-80.0) Lymphocytes (%) (Auto) 28.1 % (10.0-50.0) Monocytes (%) (Auto) 7.9 % (0.0-12.0) Eosinophils (%) (Auto) 1.1 % (0.0-7.0) Basophils (%) (Auto) 0.3 % (0.0-2.0) Neutrophils # (Auto) 6.4 10 ^3/uL (1.6-8.6) Lymphocytes # (Auto) 2.9 10 ^3/uL (0.4-5.4) Monocytes # (Auto) 0.8 10 ^3/uL (0-1.3) Eosinophils # (Auto) 0.1 10 ^3/uL (0-0.8) Basophils # (Auto) 0 10 ^3/uL (0-0.2) Nucleated Red Blood Cells 0.1 % Sodium Level 144 mmol/L (136-145) Potassium Level 3.4 mmol/L (3.5-5.1) Chloride Level 107 mmol/L (98-107) Carbon Dioxide Level 26 mmol/L (20-31) Anion Gap 11 (5-15) Blood Urea Nitrogen 16 mg/dL (9-23) Creatinine 0.95 mg/dL (0.700-1.30) Glomerular Filtration Rate Calc 84 mL/min (>90) BUN/Creatinine Ratio 16.8 (10.0-20.0) Serum Glucose 109 mg/dL (74-106) Calcium Level 9.7 mg/dL (8.7-10.4) Total Bilirubin 1.3 mg/dL (0.2-1.0) Aspartate Amino Transferase (AST) 24 U/L (<34) Alanine Aminotransferase (ALT) 25 U/L (7-40) Alkaline Phosphatase 81 U/L (46-116) Total Protein 7.1 g/dL (5.7-8.2) Albumin 4.3 g/dL (3.2-4.8) Hemoglobin A1c 6.3 % A1C (<5.7) Triglycerides Level 153 mg/dL (< 150) Cholesterol Level 100 mg/dL (< 200) LDL Cholesterol 44 mg/dL (< 100) HDL Cholesterol 34 mg/dL (40-59) Thyroid Stimulating Hormone (TSH) 0.95 uIU/mL (0.55-4.78) Urine Color Colorless (Yellow) Urine Clarity Clear (Clear) Urine pH 6.5 (5.0-9.0) Urine Specific [place] 1.012 (1.001-1.035) Urine Protein Negative (Negative) Urine Ketones 1+ (Negative) Urine Blood Negative /uL (Negative) Urine Nitrite Negative (Negative) Urine Bilirubin Negative (Negative) Urine Urobilinogen Normal mg/dL (Negative) Urine Leukocyte Esterase Negative /uL (Negative) Urine RBC <1 /hpf (0 - 3) Urine Microscopic WBC 1 /HPF (0-3) Urine Squamous Epithelial Cells None seen /hpf (<5) Urine Bacteria None seen /hpf (None Seen) Urine Glucose Normal mg/dL (Normal) Urine Opiates Screen Neg (NEGATIVE) Urine Fentanyl Screen Pos (NEGATIVE) Urine Barbiturates Screen Neg (NEGATIVE) Urine Phencyclidine Screen Neg (NEGATIVE) Urine Amphetamines Screen Neg (NEGATIVE) Urine Benzodiazepines Screen Pos (NEGATIVE) Urine Cocaine Screen Neg (NEGATIVE) Urine Cannabinoids Screen Neg (NEGATIVE) POC Glucose 102 mg/dl (70-106) Test 09/24/24 11:39 Prothrombin Time 11.0 sec (9.3-11.8) Prothrombin Time INR 1.04 (0.9-1.15) Activated Partial Thromboplast Time 26.5 SEC (24.5-34.5) Other Laboratory Tests 09/28/24 04:50 Brief Hx & Hospital Course: History of Present Illness Johnny Kinney is a 73-year-old male with past medical history of hypertension, hemorrhoids, [place], moderate diverticulosis, colon polyps, colonoscopy, colon cancer, and cyst on the head was removed in 2023 at [facility] who presents to the OR for colonoscopy. Patient was seen in the recovery room after colonoscopy and on the monitor shows AFib. RN at the bedside states that the patient's rate went up to the 130s. Patient is admitted for AFib RVR up to the 130s. Patient reports that he did not take his metoprolol today due to the colonoscopy. He also reports that he sees Dr. Patel as his quality assurance supervisor body every 3-6 months for follow up and has no history of AFib. Patient denies any current chest pain, fever, chills, recent trauma or injury, recent sick contacts, recent ingestion of spoiled food, recent travels, nausea, vomiting, diarrhea, lightheadedness, weakness, or dizziness. Patient also states that he lives at home with his . He states that he walks without any DMEs. Course of hospitalization: Long discussion made with the patient's son who was bedside regarding patient's medical history. Apparently, the patient has a history of having AFib with RVR in the past. He has been evaluated by his quality assurance supervisor body, Dr. Patel, for which the patient was placed on metoprolol tartrate. Patient has converted to sinus rhythm with periods of junctional rhythm while the patient is sleeping. Patient has been ambulating without any issues. CHADS-VASc score noted to be two. Patient also takes Plavix and aspirin, for which he is unsure of the patient has a cardiac stent. Unable to find any coronary angiography in the PAC system. Patient was requesting to be discharged home. He will follow up with his Cardiology in one week. He will continue all previous home medications. Given the fact that he has paroxysmal AFib, evaluation should be made by his quality assurance supervisor body for possible anticoagulation. At this time, given that he has had multiple areas of biopsy during this colonoscopy as well as narrowing of polyps, anticoagulation will be held at this time. Patient's family are agreeable with discharge plan. All questions answered. Physical examination General: Alert and Oriented x3. No acute distress. Well-nourished. Eyes: EOMI. Anicteric. HENT: Moist mucous membranes. Lungs: Clear to auscultation bilaterally. No accessory muscle use. Cardiovascular: Regular rate and rhythm. No murmur. No JVD. Abdomen: Soft, non-tender and non-distended. No palpable masses. Extremities: No edema. Non-tender. Skin: No rashes or lesions. Warm. Neurologic: No focal neurological deficits. CN II-XII grossly intact, but not individually tested. Psychiatric: Cooperative. Appropriate mood and affect. Total time spent with patient discussing and formulating plan of care: 35 minutes. This medical document was created using an electronic medical record system with [employer] dictation system. Although this document has been carefully reviewed, there may still be some phonetic and typographical errors. These areas are purely typographical due to imperfections of the software programs, and do not reflect any compromise in the patient's medical care. Condition at Discharge: Fair Final Diagnosis/Problems List AFib with RVR Secondary diagnosis: Hypertension History of colon cancer Discharge Disposition: Home Discharge Instruct/Medications Diet: Cardiac 2g Na,low cholest Activity: No Restrictions, As Tolerated Follow Up/Referral: Follow up with Dr. Patel in one week PCP in 1-2 weeks, Dr. [facility], Dr. Idalmis Ch in 2-3 weeks Medications: Continue all home medications. Restart Plavix and aspirin on 09/30/2024 36 Discharge Statement: "Patient was advised to return to the ER or call 911 if any headaches, dizziness, shortness of breath, chest pain, abdominal pain, bleeding, fevers, or worsening of medical condition. Patient was counseled about treatment plan, medications, possible side effects, patientverbalized understanding. All questions were answered to the best of my ability. This discharge took greater then 30 minutes in planning, reviewing documentation, counseling the patient, and discussing with other team members." ASSESSMENT ASSESSMENT Assessment AFib with RVR Date of Service: Sep 28, 2024 Billing Provider: SHARON RENDON NP Common Visit Codes: 08169-CAV/OBS DISCH DAY >30min SHARON RENDON THERMODYNAMIC PHYSICIST Sep 28, 2024 14:26
[2024-09-28 14:45] VITALS: BP 113/80; PULSE 52; TEMP 36.7
[2024-09-28] MEDS: POTASSIUM EFFERVESENT TAB 25 MEQ PO ONE (16:06)
== END 2024-09-28 16:25 | disposition home or self-care (01) | DRG 392 ==
LOC: GI 08:51 → OVERFLOW 12:30 → TELE-WESTW 15:02
PROVIDERS: ATTEND Internal Medicine Gastroenterology
PROC: 0DBK8ZZ Excision of Ascending Colon, Via Natural or Artificial Opening Endoscopic (ICD-10-PCS; 2024-09-27)
PROC: 0DBN8ZZ Excision of Sigmoid Colon, Via Natural or Artificial Opening Endoscopic (ICD-10-PCS; 2024-09-27)
PROC: 0DBH8ZZ Excision of Cecum, Via Natural or Artificial Opening Endoscopic (ICD-10-PCS; principal; 2024-09-27 10:07)
DX: K57.30 Diverticulosis of large intestine without perforation or abscess without bleeding (principal); I10 Essential (primary) hypertension; K63.5 Polyp of colon; I48.0 Paroxysmal atrial fibrillation; K64.8 Other hemorrhoids; Z95.5 Presence of coronary angioplasty implant and graft; Z86.0100 Personal history of colon polyps, unspecified; Z85.038 Personal history of other malignant neoplasm of large intestine; Z79.02 Long term (current) use of antithrombotics/antiplatelets; I25.2 Old myocardial infarction
CPT/HCPCS: 36415; 45380; 71045; 80053; 80061; 80307; 81001; 82962; 83036; 84443; 85025; 85610; 85730; 93005; 93306; G0378; J2250

== ENCOUNTER 2024-11-11 09:26 | Outpatient (CLI) | payer OTHER ==
[~2024-11-11 09:26] MED LIST changes: -PRED20TA2 PO
[2024-11-11 10:04] LABS: Hematocrit 43.0 % (41.0-53.0); Hemoglobin 14.9 g/dL (13.5-17.5); Mean Corpuscular Hemoglobin 31.1 pg (28.0-32.0); Mean Corpuscular Volume 89.8 fL (80.0-100.0); Nucleated Red Blood Cells % 0.1 %
[2024-11-11 10:12] LABS: Urine Protein, UAD Negative (Negative)
[2024-11-11 10:49] LABS: Alanine Aminotransferase 20 U/L (7-40); Albumin 4.4 g/dL (3.2-4.8); Alkaline Phosphatase 99 U/L (46-116); Anion Gap 11 (5-15); BUN/Creatinine Ratio 16.1 (10.0-20.0); Blood Urea Nitrogen 14 mg/dL (9-23); Calcium 9.0 mg/dL (8.7-10.4); Carbon Dioxide 24 mmol/L (20-31); Chloride 105 mmol/L (98-107); Cholesterol 107 mg/dL (< 200); Potassium 3.5 mmol/L (3.5-5.1); Sodium 140 mmol/L (136-145); Total Protein 7.2 g/dL (5.7-8.2)
[2024-11-11 10:50] LABS: Bilirubin, Total 0.8 mg/dL (0.2-1.0)
[2024-11-11 10:55] LABS: Glucose 129 mg/dL (74-106); HDL Cholesterol 40 mg/dL (40-59); Triglycerides 195 mg/dL (< 150)
[2024-11-11 11:12] LABS: Microalb/Creat Ratio, Urine 4.00
== END 2024-11-11 17:00 | disposition home or self-care (01) ==
LOC: LAB 09:26
PROVIDERS: ATTEND Nurse Practitioner Family
DX: Z12.5 Encounter for screening for malignant neoplasm of prostate (principal); I10 Essential (primary) hypertension; E78.5 Hyperlipidemia, unspecified; E55.9 Vitamin D deficiency, unspecified; E78.9 Disorder of lipoprotein metabolism, unspecified; E11.9 Type 2 diabetes mellitus without complications; Z79.899 Other long term (current) drug therapy
CPT/HCPCS: 36415; 80053; 80061; 81001; 82043; 82306; 82570; 83036; 84153; 84443; 85025

== ENCOUNTER 2024-12-30 08:11 | Outpatient (CLI) | payer OTHER ==
[2024-12-30 08:55] LABS: Hematocrit 41.5 % (41.0-53.0); Hemoglobin 14.4 g/dL (13.5-17.5); Mean Corpuscular Hemoglobin 31.2 pg (28.0-32.0); Mean Corpuscular Volume 90.0 fL (80.0-100.0); Nucleated Red Blood Cells % 0.1 %
[2024-12-30 09:17] LABS: Alanine Aminotransferase 28 U/L (7-40); Albumin 4.3 g/dL (3.2-4.8); Alkaline Phosphatase 98 U/L (46-116); Anion Gap 10 (5-15); BUN/Creatinine Ratio 15.5 (10.0-20.0); Blood Urea Nitrogen 15 mg/dL (9-23); Calcium 9.2 mg/dL (8.7-10.4); Carbon Dioxide 25 mmol/L (20-31); Chloride 106 mmol/L (98-107); Potassium 3.5 mmol/L (3.5-5.1); Sodium 141 mmol/L (136-145); Total Protein 7.5 g/dL (5.7-8.2)
[2024-12-30 09:18] LABS: Bilirubin, Total 0.8 mg/dL (0.2-1.0); Cholesterol 101 mg/dL (< 200); Glucose 125 mg/dL (74-106); Triglycerides 154 mg/dL (< 150)
[2024-12-30 09:19] LABS: HDL Cholesterol 39 mg/dL (40-59)
[2024-12-30 11:36] LABS: Urine Protein, UAD Negative (Negative)
== END 2024-12-30 17:00 | disposition home or self-care (01) ==
LOC: LAB 08:11
PROVIDERS: ATTEND Nurse Practitioner Family
DX: E11.9 Type 2 diabetes mellitus without complications (principal); E78.5 Hyperlipidemia, unspecified; E55.9 Vitamin D deficiency, unspecified
CPT/HCPCS: 36415; 80053; 80061; 81003; 82306; 83036; 84443; 85025